=== PATIENT | male | born 1950 | race Caucasian/White ===

== ENCOUNTER → 2018-04-03 00:54 | Outpatient (CLI) | payer MEDICARE, SELFPAY ==
--- NOTE | 2018-04-03 14:28 | DI.MRI_ITS ---
SYMPTOMS/DIAGNOSIS: CONFUSION, ATAXIA, R41.0, R27.0 BRAIN MRI: There are no prior comparison exams. T 2 sagittal, T 1, T 2, FLAIR, diffusion and gradient echo axial sequences were performed. There is moderate atrophy. The ventricular size is proportional to the degree of atrophy. There are several small foci of high signal in the white matter consistent with small vessel disease. No acute infarct, hemorrhage or mass is seen. The orbits, sinuses and mastoid air cells appear clear. The right vertebral artery is dominant and ectatic. The vascular flow voids appear intact. IMPRESSION: Atrophy somewhat disproportionate to the patient's age. Mild white matter changes likely reflecting small vessel disease.
== END ==
PROVIDERS: PCP Student in an Organized Health Care Education/Training Program; Visit Provider General Practice
DX: R41.0 Disorientation, unspecified (principal); R27.0 Ataxia, unspecified; R90.82 White matter disease, unspecified
CPT/HCPCS: 70551

== ENCOUNTER 2019-03-29 11:29 | Outpatient (REF) | payer MEDICARE, SELFPAY ==
[2019-03-29 21:17] LABS: ALT 37 U/L (16-63); AST 20 U/L (15-37); Albumin 3.9 g/dL (3.4-5.0); Alkaline Phosphatase 124 U/L (46-116); Anion Gap 8.1 mmol/L (3-11); BUN 18 mg/dL (7-18); CO2 26.9 mmol/L (21.0-32.0); CREATININE 1.05 mg/dL (0.70-1.30); Calcium 9.1 mg/dL (8.5-10.1); Calculated LDL 68 mg/dL (<100); Chloride 103 mmol/L (98-107); Cholesterol 132 mg/dL (<200); Glucose 163 mg/dL (74-106); HDL Cholesterol 38 mg/dL (40-60); Potassium 4.5 mmol/L (3.5-5.1); Sodium 138 mmol/L (136-145); TSH (W/Ref FT4) 1.72 uIU/mL (0.36-3.74); Total Protein 7.3 g/dL (6.4-8.2); Triglyceride 132 mg/dL (<150)
[2019-03-31 16:13] LABS: CRP, High Sensitivity 1.42 mg/L (See Note)
[2019-04-01 10:29] LABS: PSA, Diagnostic 0.1 ng/mL (0.0-4.5)
== END 2019-03-29 11:49 ==
LOC: NCHCN 11:29
PROVIDERS: PCP Student in an Organized Health Care Education/Training Program; Visit Provider Family Medicine
DX: E11.9 Type 2 diabetes mellitus without complications (principal); I10 Essential (primary) hypertension; E78.5 Hyperlipidemia, unspecified; I25.10 Atherosclerotic heart disease of native coronary artery without angina pectoris; C61 Malignant neoplasm of prostate
CPT/HCPCS: 80053; 80061; 86141; 84153; 84443

== ENCOUNTER 2019-04-19 12:49 | Outpatient (REF) | payer MEDICARE, SELFPAY ==
--- NOTE | 2019-04-19 09:15 | SKI_PTH ---
PATIENT: Niranjan Duarte LOC: [facility] U#:[id number] AGE/SX: 68/M ROOM: RE04/19/[address]: Adeline Naranjo : 1950 BED: DIS: 04/19/2019 SPEC #: [id number] RECD: 04/19/19 12:56 STATUS: CHRISTINE REQ #: [id number] MEHNAZ: 04/19/19 09:[address]: Adeline Naranjo DEPT: Surgical Specimen RECD BY: Radha Julian ENTERED: 04/19/19 12:57 SP TYPE: JENNIFER WHITAKER DR: Sharon Watson DO Tissues: 1 - SKIN BIOPSY(SHAVE/PUNCH) Procedures: SKIN LEVEL 4 Comments: [id number]
== END 2019-04-19 13:09 ==
LOC: NCHCN 12:49
PROVIDERS: PCP Student in an Organized Health Care Education/Training Program; Visit Provider Family Medicine
DX: L57.0 Actinic keratosis (principal)
CPT/HCPCS: 88305

== ENCOUNTER 2020-11-09 13:43 | Outpatient (REF) | payer MEDICARE, SELFPAY ==
[2020-11-09 15:01] LABS: Hemoglobin A1C 8.2 % (<5.7)
[2020-11-09 15:20] LABS: ALT 50 U/L (16-63); AST 20 U/L (15-37); Albumin 3.7 g/dL (3.4-5.0); Alkaline Phosphatase 104 U/L (46-116); Anion Gap 11.1 mmol/L (3-11); BUN 20 mg/dL (7-18); Bilirubin, Total 0.6 mg/dL (0.2-1.0); CO2 24.9 mmol/L (21.0-32.0); CREATININE 1.3 mg/dL (0.70-1.30); Calcium 8.8 mg/dL (8.5-10.1); Calculated LDL 67 mg/dL (<100); Chloride 105 mmol/L (98-107); Cholesterol 127 mg/dL (<200); Estimated GFR 54.73 (mL/min/1.73m2); Glucose 186 mg/dL (74-106); HDL Cholesterol 34 mg/dL (40-60); Potassium 3.9 mmol/L (3.5-5.1); Sodium 141 mmol/L (136-145); Total Protein 7.1 g/dL (6.4-8.2); Triglyceride 131 mg/dL (<150)
[2020-11-09 22:50] LABS: PSA, Screening 0.2 ng/mL (0.0-4.5)
== END 2020-11-09 13:44 | disposition home or self-care (01) ==
LOC: NCHCN 13:43
PROVIDERS: PCP Student in an Organized Health Care Education/Training Program; Visit Provider Family Medicine
DX: C61 Malignant neoplasm of prostate (principal); E11.9 Type 2 diabetes mellitus without complications; I10 Essential (primary) hypertension; E78.5 Hyperlipidemia, unspecified
CPT/HCPCS: 80053; 80061; 84153; 83036

== ENCOUNTER 2023-06-12 14:25 | Outpatient (REF) | payer MEDICARE, SELFPAY ==
[2023-06-12 17:02] LABS: ALT 48 U/L (16-63); AST 22 U/L (15-37); Albumin 3.5 g/dL (3.4-5.0); Alkaline Phosphatase 111 U/L (46-116); Anion Gap 10.7 mmol/L (3-11); BUN 22 mg/dL (7-18); Bilirubin, Total 0.7 mg/dL (0.2-1.0); CO2 25.3 mmol/L (21.0-32.0); CREATININE 1.2 mg/dL (0.70-1.30); Calcium 8.9 mg/dL (8.5-10.1); Calculated LDL 53 mg/dL (<100); Chloride 104 mmol/L (98-107); Cholesterol 131 mg/dL (<200); Estimated GFR 64.25 (mL/min/1.73m2); Glucose 264 mg/dL (74-106); HDL Cholesterol 39 mg/dL (40-60); Potassium 4.3 mmol/L (3.5-5.1); Sodium 140 mmol/L (136-145); Total Protein 6.7 g/dL (6.4-8.2); Triglyceride 195 mg/dL (<150)
[2023-06-13 08:19] LABS: PSA, Diagnostic 0.2 ng/mL (<=6.5)
== END 2023-06-12 14:26 | disposition home or self-care (01) ==
LOC: NCHCN 14:25
PROVIDERS: Visit Provider Family Medicine
DX: E78.5 Hyperlipidemia, unspecified (principal); Z12.5 Encounter for screening for malignant neoplasm of prostate
CPT/HCPCS: 80053; 80061; 84153

== ENCOUNTER 2024-06-24 21:06 | Outpatient (REF) | payer MEDICARE, SELFPAY ==
[2024-06-24 22:14] LABS: Microalb ug/mg Crea 46.6 ug/mg Cr
== END 2024-06-24 21:07 | disposition home or self-care (01) ==
LOC: NCHCN 21:06
PROVIDERS: Visit Provider Family Medicine
DX: E11.9 Type 2 diabetes mellitus without complications (principal)
CPT/HCPCS: 82043; 82570

== ENCOUNTER → 2024-07-09 14:45 | Outpatient (BNVA) | payer MEDICARE, SELFPAY | PROVIDERS: PCP Family Medicine; Referring Provider Family Medicine; Visit Provider Podiatrist | DX: L60.3 Nail dystrophy (principal); B35.1 Tinea unguium; E11.42 Type 2 diabetes mellitus with diabetic polyneuropathy; L60.2 Onychogryphosis; M79.671 Pain in right foot; M79.672 Pain in left foot; R09.89 Other specified symptoms and signs involving the circulatory and respiratory systems; L60.0 Ingrowing nail; L65.9 Nonscarring hair loss, unspecified; L60.8 Other nail disorders; L85.8 Other specified epidermal thickening | CPT/HCPCS: 11721 ==

== ENCOUNTER → 2024-12-03 08:46 | Outpatient (BNVA) | payer MEDICARE, SELFPAY | PROVIDERS: PCP Family Medicine; Referring Provider Family Medicine; Visit Provider Podiatrist | DX: L60.3 Nail dystrophy (principal); B35.1 Tinea unguium; E11.42 Type 2 diabetes mellitus with diabetic polyneuropathy; B35.3 Tinea pedis; M79.671 Pain in right foot; M79.672 Pain in left foot; R09.89 Other specified symptoms and signs involving the circulatory and respiratory systems; R60.0 Localized edema; L65.9 Nonscarring hair loss, unspecified; L60.2 Onychogryphosis; L60.8 Other nail disorders; L60.0 Ingrowing nail; L85.8 Other specified epidermal thickening | CPT/HCPCS: 11721; 93922 ==